=== PATIENT | male | born 1950 | race African-American/Black ===

== ENCOUNTER 2016-06-02 14:37 | Observation (INO) | payer OTHER, MEDICAID ==
[~2016-06-02] VITALS: Ht 175.3 cm; Wt 63.5 kg
[~2016-06-02 14:37] MED LIST: ACET-2178 PO; ACLI400A2 IH; ALBU2.5V13 NEB; FLUT1DIS IH; IPRA3AMP9 INH; LAMO25TA4 PO; LEVE1000 PO
[2016-06-02 15:51] LABS: HEMATOCRIT. 54.5 % (42.0-52.0); HEMOGLOBIN. 17.6 g/dL (14.0-18.0); MEAN CORPUSCULAR HEMOGLOBIN 28.2 pg (28.0-32.0); MEAN CORPUSCULAR HGB CONC 32.3 g/dL (31.0-37.0); MEAN CORPUSCULAR VOLUME 87.2 fL (80.0-94.0); PLATELET 199 x1000/uL (130-400); RED BLOOD CELL COUNT 6.24 mill/uL (4.7-6.1); RED CELL DISTRIBUTION WIDTH 14.2 % (11.6-14.6)
[2016-06-02 15:52] LABS: INR 1.2; PROTHROMBIN TIME 12.9 sec
[2016-06-02 15:58] LABS: DIFFERENTIAL COMMENT 1
[2016-06-02 15:59] LABS: ALANINE AMINOTRANSFERASE 127 IU/L (13-61); ALBUMIN 4.1 g/dL (3.4-5.0); ANION GAP 23; CALCIUM 9.5 mg/dL (8.5-10.1); CARBON DIOXIDE 20 mEq/L (21-32); CHLORIDE 101 mEq/L (98-107); INDEX HEMOLYSI 1 (1-3); INDEX ICTERIC 1 (1-4); INDEX LIPEMIC 1 (1-3); UREA NITROGEN BLOOD 15 mg/dL (7-21); eGFR > 60 mL/min (>60)
[2016-06-02 16:19] LABS: PLATELET ESTIMATE NORMAL
[2016-06-02] MEDS ORDERED: LEVETIRACETAM 500MG PREMIX 100 ML IV ONE (16:30)
[2016-06-02 16:42] LABS: INDEX HEMOLYSI 3 (1-3)
[2016-06-02 16:46] LABS: AMMONIA 253 uMol/L (<32)
[2016-06-02 17:36] LABS: *AMPHETAMINES SCREEN URINE NEGATIVE (NEGATIVE); *BARBITURATES SCREEN URINE NEGATIVE (NEGATIVE); *BENZODIAZEPINES SCREEN URINE NEGATIVE (NEGATIVE); *COCAINE SCREEN URINE NEGATIVE (NEGATIVE); CANNABINOID URINE SCREEN NEGATIVE (NEGATIVE); ECSTASY MDMA SCREEN URINE NEGATIVE (NEGATIVE); METHADONE URINE SCREEN NEGATIVE (NEGATIVE); OPIATES URINE SCREEN NEGATIVE (NEGATIVE); PHENCYCLIDINE URINE SCREEN NEGATIVE (NEGATIVE)
[2016-06-02] MEDS ORDERED: LACTULOSE 20G/30ML UDC PO ONE (18:00)
[2016-06-02 22:00] VITALS: BP_SYST 85; BP_SYST 87; BP_DIAS 67
[2016-06-03] VITALS: BP 94/71
[2016-06-03] MEDS ORDERED: ACETAMINOPHEN 325MG TABLET PO PRN (01:15)
[2016-06-03] MEDS: SODIUM CHLORIDE 0.45% 1,000 ML IV SCH ×3 (01:35→13:49)
[2016-06-03] MEDS: IPRATROPIUM/ALBUTEROL 0.5-3(2.5)MG/3ML NEB HHN SCH ×2 (01:47→04:37)
[2016-06-03 04:00] VITALS: BP 104/64
[2016-06-03] MEDS ORDERED: LACTULOSE 20G/30ML UDC PO SCH (06:00)
[2016-06-03 06:48] LABS: AMMONIA 21 uMol/L (<32); INDEX HEMOLYSI 2 (1-3)
[2016-06-03 07:09] LABS: ALANINE AMINOTRANSFERASE 110 IU/L (13-61); ALBUMIN 3.6 g/dL (3.4-5.0); ANION GAP 13; CALCIUM 8.5 mg/dL (8.5-10.1); CARBON DIOXIDE 27 mEq/L (21-32); CHLORIDE 104 mEq/L (98-107); INDEX HEMOLYSI 2 (1-3); INDEX ICTERIC 1 (1-4); INDEX LIPEMIC 1 (1-3); UREA NITROGEN BLOOD 20 mg/dL (7-21); eGFR > 60 mL/min (>60)
[2016-06-03 07:12] LABS: BASOPHILS % 0.7 % (0.0-2.0); EOSINOPHILS % 0.9 % (0.0-5.0); HEMATOCRIT. 49.7 % (42.0-52.0); HEMOGLOBIN. 16.8 g/dL (14.0-18.0); LYMPHOCYTES % 16.3 % (20.0-50.0); MEAN CORPUSCULAR HEMOGLOBIN 28.7 pg (28.0-32.0); MEAN CORPUSCULAR HGB CONC 33.7 g/dL (31.0-37.0); MEAN CORPUSCULAR VOLUME 84.9 fL (80.0-94.0); MEAN PLATELET VOLUME 7.9 fl (7.4-10.4); MONOCYTES % 10.8 % (2.0-8.0); NEUTROPHILS % 71.3 % (40.0-76.0); PLATELET 166 x1000/uL (130-400); RED BLOOD CELL COUNT 5.85 mill/uL (4.7-6.1); WHITE BLOOD COUNT 8.7 x1000/uL (4.5-11.0)
[2016-06-03 08:00] VITALS: BP 100/69
[2016-06-03] MEDS ORDERED: LAMOTRIGINE 25MG TABLET PO SCH (09:00)
[2016-06-03] MEDS ORDERED: LEVETIRACETAM 500MG TABLET PO SCH (09:00)
[2016-06-03 12:00] VITALS: BP 97/65
[2016-06-03 14:57] VITALS: BP 97/65
[2016-06-03 16:00] VITALS: BP 105/76
== END 2016-06-03 17:10 | disposition home or self-care (01) ==
LOC: ER 15:18 → INTOOBSV 19:18 → 7WST 19:18
PROVIDERS: ADMIT Internal Medicine; ATTEND Internal Medicine
DX: G40.909 Epilepsy, unspecified, not intractable, without status epilepticus (principal); J44.9 Chronic obstructive pulmonary disease, unspecified; F03.90 Unspecified dementia, unspecified severity, without behavioral disturbance, psychotic disturbance, mood disturbance, and anxiety; I50.9 Heart failure, unspecified; R41.0 Disorientation, unspecified
CPT/HCPCS: 36415; 70450; 80053; 80305; 82140; 82542; 85025; 85610; 96361; 96365; 99285; G0378; J1953; 96374; J7620

== ENCOUNTER 2016-07-11 11:21 | Observation (INO) | payer OTHER, MEDICAID ==
[~2016-07-11] VITALS: Ht 182.9 cm; Wt 69.9 kg
[2016-07-11 13:25] LABS: HEMATOCRIT. 50.6 % (42.0-52.0); HEMOGLOBIN. 16.9 g/dL (14.0-18.0); MEAN CORPUSCULAR HEMOGLOBIN 28.4 pg (28.0-32.0); MEAN CORPUSCULAR HGB CONC 33.4 g/dL (31.0-37.0); MEAN CORPUSCULAR VOLUME 85.2 fL (80.0-94.0); MEAN PLATELET VOLUME 7.9 fl (7.4-10.4); PLATELET 173 x1000/uL (130-400); RED BLOOD CELL COUNT 5.94 mill/uL (4.7-6.1)
[2016-07-11 13:30] LABS: DIFFERENTIAL COMMENT 1
[2016-07-11 13:31] LABS: AMMONIA 53 uMol/L (<32)
[2016-07-11 13:34] LABS: ALANINE AMINOTRANSFERASE 104 IU/L (13-61); ALBUMIN 3.8 g/dL (3.4-5.0); ANION GAP 14; CARBON DIOXIDE 29 mEq/L (21-32); CHLORIDE 101 mEq/L (98-107); ETHANOL BLOOD < 10 mg/dL; INDEX HEMOLYSI 1 (1-3); INDEX ICTERIC 1 (1-4); INDEX LIPEMIC 1 (1-3); TROPONIN I < 0.02 ng/mL (0.00-0.04); UREA NITROGEN BLOOD 15 mg/dL (7-21); eGFR > 60 mL/min (>60)
[2016-07-11 13:37] LABS: LACTIC ACID 5.3 mmol/L (0.4-2.0)
[2016-07-11 14:02] LABS: PLATELET ESTIMATE NORMAL
[2016-07-11 15:27] LABS: CLARITY URINE CLOUDY (CLEAR); COLOR URINE YELLOW (YELLOW); GLUCOSE URINE NEGATIVE (NEGATIVE); KETONES URINE NEGATIVE (NEGATIVE); LEUKOCYTE ESTERASE URINE 2+ (NEGATIVE); NITRITE URINE NEGATIVE (NEGATIVE); OCCULT BLOOD URINE NEGATIVE (NEGATIVE); PH URINE 5.5 (4.5-8.0); PROTEIN URINE TRACE (NEGATIVE); SPECIFIC GRAVITY URINE 1.013 (1.005-1.030); UROBILINOGEN URINE 0.2 E.U./dL (0.2-1.0)
[2016-07-11 15:42] LABS: *AMPHETAMINES SCREEN URINE NEGATIVE (NEGATIVE); *BARBITURATES SCREEN URINE NEGATIVE (NEGATIVE); *BENZODIAZEPINES SCREEN URINE NEGATIVE (NEGATIVE); *COCAINE SCREEN URINE NEGATIVE (NEGATIVE); CANNABINOID URINE SCREEN NEGATIVE (NEGATIVE); ECSTASY MDMA SCREEN URINE NEGATIVE (NEGATIVE); METHADONE URINE SCREEN NEGATIVE (NEGATIVE); OPIATES URINE SCREEN NEGATIVE (NEGATIVE); PHENCYCLIDINE URINE SCREEN NEGATIVE (NEGATIVE)
[2016-07-11 15:58] LABS: BACTERIA URINE 1+; RBC URINE NONE SEEN /hpf (0-2); SQUAMOUS EPITHELIAL CELL URINE NONE SEEN /lpf (RARE/1+); WBC URINE 15-25 /hpf (0-2)
[2016-07-11] MEDS ORDERED: CEFTRIAXONE 2 G PREMIX 50 ML IV ONE (16:30)
[2016-07-11] MEDS ORDERED: SODIUM CHLORIDE 0.9% 1000ML BAG (SEPSIS BOLUS) IV ONE (16:30)
[2016-07-11 21:00] VITALS: BP_SYST 103; BP_DIAS 72; BP_DIAS 82
[2016-07-11] MEDS ORDERED: IPRATROPIUM/ALBUTEROL 0.5-3(2.5)MG/3ML NEB HHN PRN (22:00)
[2016-07-11] MEDS ORDERED: ACETAMINOPHEN 325MG TABLET PO PRN (22:00)
[2016-07-11] MEDS: SODIUM CHLORIDE 0.45% 1,000 ML IV SCH (23:02)
[2016-07-11] MEDS: LAMOTRIGINE 100MG TABLET PO SCH (23:08)
[2016-07-11] MEDS: LEVETIRACETAM 500MG TABLET PO SCH (23:08)
[2016-07-12] VITALS: BP 107/68
[2016-07-12 04:00] VITALS: BP 98/69
[2016-07-12 08:00] VITALS: BP 109/66
[2016-07-12] MEDS: LAMOTRIGINE 100MG TABLET PO SCH (08:41)
[2016-07-12] MEDS: SODIUM CHLORIDE 0.45% 1,000 ML IV SCH (08:41)
[2016-07-12] MEDS: LEVETIRACETAM 500MG TABLET PO SCH (08:41)
[2016-07-12 12:00] VITALS: BP 88/56
[2016-07-12 16:13] VITALS: BP 88/56
== END 2016-07-12 16:45 ==
LOC: ER 11:21 → 6WST 20:11 → INTOOBSV 20:11
PROVIDERS: ADMIT Internal Medicine; ATTEND Internal Medicine
DX: G40.909 Epilepsy, unspecified, not intractable, without status epilepticus (principal); K21.9 Gastro-esophageal reflux disease without esophagitis; J44.9 Chronic obstructive pulmonary disease, unspecified; Z87.891 Personal history of nicotine dependence
CPT/HCPCS: 36415; 51702; 70450; 71010; 80053; 80305; 81001; 82140; 82542; 83605; 84484; 85025; 87040; 93005; 96361; 96365; 99291; G0378; G0482; J0696

== ENCOUNTER 2016-08-07 14:34 | Observation (INO) | payer OTHER, MEDICAID ==
[~2016-08-07] VITALS: Ht 175.3 cm; Wt 69.4 kg
[2016-08-07] MEDS ORDERED: SODIUM CHLORIDE 0.9% 1,000 ML IV ONE (15:16)
[2016-08-07] MEDS ORDERED: TETANUS, DIPHTHERIA, PERTUSSIS VAC/PF 0.5ML (>7YR OLD) IM ONE (15:30)
[2016-08-07] MEDS ORDERED: LIDOCAINE HCL 1% 20ML VIAL (Pyxis) INJ MC ONE (15:30)
[2016-08-07] MEDS ORDERED: LEVETIRACETAM 500MG PREMIX 100 ML IV ONE (15:30)
[2016-08-07] MEDS ORDERED: BACITRACIN ZINC OINT UDPKT TOP ONE (15:30)
[2016-08-07 16:42] LABS: BASOPHILS % 0.7 % (0.0-2.0); EOSINOPHILS % 0.7 % (0.0-5.0); HEMATOCRIT. 54.9 % (42.0-52.0); HEMOGLOBIN. 18.3 g/dL (14.0-18.0); LYMPHOCYTES % 10.9 % (20.0-50.0); MEAN CORPUSCULAR HEMOGLOBIN 28.3 pg (28.0-32.0); MEAN CORPUSCULAR VOLUME 84.8 fL (80.0-94.0); MEAN PLATELET VOLUME 7.9 fl (7.4-10.4); MONOCYTES % 5.7 % (2.0-8.0); PLATELET 207 x1000/uL (130-400); RED BLOOD CELL COUNT 6.48 mill/uL (4.7-6.1); RED CELL DISTRIBUTION WIDTH 14.2 % (11.6-14.6)
[2016-08-07 16:56] LABS: CARBON DIOXIDE 26 mEq/L (21-32); CHLORIDE 102 mEq/L (98-107); ETHANOL BLOOD < 10 mg/dL; TROPONIN I < 0.02 ng/mL (0.00-0.04)
[2016-08-07 16:59] LABS: AMMONIA 150 uMol/L (<32)
[2016-08-07] MEDS ORDERED: LACTULOSE 20G/30ML UDC PO ONE (17:30)
[2016-08-07 19:15] LABS: INR 1.2; PARTIAL THROMBOPLASTIN TIME 20.5 sec (24.0-34.0); PROTHROMBIN TIME 12.4 sec
[2016-08-07 19:22] LABS: CARBAMAZEPINE < 0.5 ug/mL (4-12); PHENOBARBITAL < 2.1 ug/mL (15.0-40.0); PHENYTOIN < 0.4 ug/mL (10-20); VALPROIC ACID < 3.0 ug/mL (50-100)
[2016-08-07 21:10] VITALS: BP 94/74
[2016-08-07 21:20] VITALS: BP 99/74
[2016-08-07] MEDS ORDERED: DEXTROSE 5% WATER 1,000 ML IV SCH (23:45)
[2016-08-08] VITALS (10 sets, daily range): BP systolic 84–138; BP diastolic 49–98
[2016-08-08] MEDS ORDERED: IPRATROPIUM/ALBUTEROL 0.5-3(2.5)MG/3ML NEB HHN PRN
[2016-08-08] MEDS: DEXT 5%/0.45% NACL 1000ML 1,000 ML IV SCH ×2 (00:50→09:35)
[2016-08-08] MEDS ORDERED: ALBUTEROL (0.083%) 2.5MG/3ML NEB HHN SCH (06:00)
[2016-08-08] MEDS ORDERED: IPRATROPIUM BROMIDE (0.02%) 0.5MG/2.5ML NEB HHN SCH (06:00)
[2016-08-08] MEDS: LACTULOSE 20G/30ML UDC PO SCH ×2 (06:00→13:58)
[2016-08-08 08:42] LABS: BASOPHILS % 0.6 % (0.0-2.0); EOSINOPHILS % 1.7 % (0.0-5.0); HEMOGLOBIN. 14.8 g/dL (14.0-18.0); MEAN CORPUSCULAR HEMOGLOBIN 28.2 pg (28.0-32.0); MEAN CORPUSCULAR VOLUME 83.8 fL (80.0-94.0); MEAN PLATELET VOLUME 8.1 fl (7.4-10.4); MONOCYTES % 9.8 % (2.0-8.0); NEUTROPHILS % 66.9 % (40.0-76.0); PLATELET 160 x1000/uL (130-400); RED BLOOD CELL COUNT 5.25 mill/uL (4.7-6.1); RED CELL DISTRIBUTION WIDTH 14.3 % (11.6-14.6)
[2016-08-08] MEDS: BUDESONIDE 0.5MG/2ML NEB HHN SCH ×2 (08:53→20:00)
[2016-08-08] MEDS: IPRATROPIUM/ALBUTEROL 0.5-3(2.5)MG/3ML NEB HHN SCH ×2 (08:53→20:00)
[2016-08-08 08:58] LABS: AMMONIA 26 uMol/L (<32)
[2016-08-08] MEDS ORDERED: ENOXAPARIN 40MG/0.4ML SYR SUBCUT SCH (09:00)
[2016-08-08] MEDS ORDERED: LAMOTRIGINE 25MG TABLET PO SCH ×2 (09:00→17:00)
[2016-08-08] MEDS ORDERED: LEVETIRACETAM 500MG TABLET PO SCH ×2 (09:00→17:00)
[2016-08-08 09:03] LABS: CARBON DIOXIDE 28 mEq/L (21-32); CHLORIDE 109 mEq/L (98-107)
[2016-08-08] MEDS: FAMOTIDINE 20MG TABLET PO SCH ×2 (09:34→20:31)
[2016-08-08] MEDS ORDERED: MIDODRINE HCL 2.5MG TABLET PO SCH (15:00)
[2016-08-08 15:34] LABS: CLARITY URINE CLEAR (CLEAR); COLOR URINE YELLOW (YELLOW); GLUCOSE URINE NEGATIVE (NEGATIVE); KETONES URINE NEGATIVE (NEGATIVE); LEUKOCYTE ESTERASE URINE NEGATIVE (NEGATIVE); NITRITE URINE NEGATIVE (NEGATIVE); OCCULT BLOOD URINE NEGATIVE (NEGATIVE); PROTEIN URINE NEGATIVE (NEGATIVE); SPECIFIC GRAVITY URINE 1.013 (1.005-1.030); UROBILINOGEN URINE 0.2 E.U./dL (0.2-1.0)
[2016-08-08 15:55] LABS: *AMPHETAMINES SCREEN URINE NEGATIVE (NEGATIVE); *BARBITURATES SCREEN URINE NEGATIVE (NEGATIVE); *BENZODIAZEPINES SCREEN URINE NEGATIVE (NEGATIVE); *COCAINE SCREEN URINE NEGATIVE (NEGATIVE); CANNABINOID URINE SCREEN NEGATIVE (NEGATIVE); METHADONE URINE SCREEN NEGATIVE (NEGATIVE); OPIATES URINE SCREEN NEGATIVE (NEGATIVE); PHENCYCLIDINE URINE SCREEN NEGATIVE (NEGATIVE)
== END 2016-08-08 23:38 ==
LOC: ER 14:43 → 8WST 18:28 → INTOOBSV 18:28 → EDBEDREQ 18:32 → EDBEDREQTM 18:32 → ENRESERV 18:42
PROVIDERS: ADMIT Ophthalmology; ATTEND Ophthalmology
DX: G40.909 Epilepsy, unspecified, not intractable, without status epilepticus (principal); S01.91XA Laceration without foreign body of unspecified part of head, initial encounter; K21.9 Gastro-esophageal reflux disease without esophagitis; J44.9 Chronic obstructive pulmonary disease, unspecified; M47.812 Spondylosis without myelopathy or radiculopathy, cervical region; K72.00 Acute and subacute hepatic failure without coma; I10 Essential (primary) hypertension; F03.90 Unspecified dementia, unspecified severity, without behavioral disturbance, psychotic disturbance, mood disturbance, and anxiety; R40.2430 Glasgow coma scale score 3-8, unspecified time; R79.89 Other specified abnormal findings of blood chemistry; Z79.899 Other long term (current) drug therapy; Z23 Encounter for immunization; X58.XXXA Exposure to other specified factors, initial encounter; Y93.89 Activity, other specified; Y92.89 Other specified places as the place of occurrence of the external cause; Y99.8 Other external cause status
CPT/HCPCS: 12011; 36415; 70450; 71010; 72125; 80053; 80156; 80165; 80184; 80185; 80305; 81003; 82140; 82962; 84484; 85025; 85610; 85730; 86850; 86900; 86901; 90471; 90715; 93005; 96361; 96365; 96372; 99285; G0378; G0482; J1650; J1953; J7050; 12001; 96374; J3490; J7030; J7620; J7626

== ENCOUNTER 2016-12-04 02:52 | Observation (INO) | payer OTHER, MEDICAID ==
[~2016-12-04] VITALS: Ht 182.9 cm; Wt 65.3 kg
[~2016-12-04 02:52] MED LIST changes: -ACET-2178 PO; -ACLI400A2 IH; -ALBU2.5V13 NEB; +DUONEB3 ML INH; -FLUT1DIS IH; -IPRA3AMP9 INH; -LEVE1000 PO; +LEVE10006 PO
[2016-12-04] MEDS ORDERED: SODIUM CHLORIDE 0.9% 1,000 ML IV ONE ×2 (03:13)
[2016-12-04] MEDS ORDERED: FAMOTIDINE 20MG/2ML VIAL IV STA (03:13)
[2016-12-04] MEDS ORDERED: TETANUS, DIPHTHERIA, PERTUSSIS VAC/PF 0.5ML (>7YR OLD) IM ONE (03:15)
[2016-12-04 03:56] LABS: BASOPHILS % 0.4 % (0.0-2.0); EOSINOPHILS % 0.4 % (0.0-5.0); HEMATOCRIT. 53.2 % (42.0-52.0); HEMOGLOBIN. 17.5 g/dL (14.0-18.0); LYMPHOCYTES % 7.5 % (20.0-50.0); MEAN CORPUSCULAR HEMOGLOBIN 28.2 pg (28.0-32.0); MEAN CORPUSCULAR VOLUME 85.5 fL (80.0-94.0); MEAN PLATELET VOLUME 7.9 fl (7.4-10.4); MONOCYTES % 5.8 % (2.0-8.0); NEUTROPHILS % 85.9 % (40.0-76.0); PLATELET 181 x1000/uL (130-400); RED BLOOD CELL COUNT 6.22 mill/uL (4.7-6.1); RED CELL DISTRIBUTION WIDTH 14.6 % (11.6-14.6)
[2016-12-04 03:59] LABS: INR 1.2; PROTHROMBIN TIME 12.8 sec (9.4-11.6)
[2016-12-04 04:15] LABS: AMMONIA 62 uMol/L (<32)
[2016-12-04 04:16] LABS: CARBON DIOXIDE 22 mEq/L (21-32); CHLORIDE 103 mEq/L (98-107); CREATINE KINASE 515 IU/L (39-308); ETHANOL BLOOD < 10 mg/dL; TROPONIN I 0.15 ng/mL (0.00-0.04)
[2016-12-04] MEDS ORDERED: SODIUM CHLORIDE 0.9% 1000ML BAG (SEPSIS BOLUS) IV NR (05:30)
[2016-12-04] MEDS ORDERED: ASPIRIN 325MG TABLET PO NR (05:30)
[2016-12-04] MEDS ORDERED: LACTULOSE 20G/30ML UDC PO NR (05:30)
[2016-12-04] MEDS ORDERED: LEVOFLOXACIN 750MG PREMIX 150 ML IV NR (05:30)
[2016-12-04 05:35] LABS: CLARITY URINE CLEAR (CLEAR); COLOR URINE YELLOW (YELLOW); GLUCOSE URINE NEGATIVE (NEGATIVE); KETONES URINE NEGATIVE (NEGATIVE); LEUKOCYTE ESTERASE URINE NEGATIVE (NEGATIVE); NITRITE URINE NEGATIVE (NEGATIVE); OCCULT BLOOD URINE 1+ (NEGATIVE); PH URINE 5.5 (4.5-8.0); PROTEIN URINE 1+ (NEGATIVE); SPECIFIC GRAVITY URINE 1.015 (1.005-1.030); UROBILINOGEN URINE 0.2 E.U./dL (0.2-1.0)
[2016-12-04] MEDS ORDERED: ACETAMINOPHEN 325MG TABLET PO PRN (05:45)
[2016-12-04] MEDS ORDERED: IPRATROPIUM/ALBUTEROL 0.5-3(2.5)MG/3ML NEB HHN PRN (05:45)
[2016-12-04 06:17] LABS: *AMPHETAMINES SCREEN URINE NEGATIVE (NEGATIVE); *BARBITURATES SCREEN URINE NEGATIVE (NEGATIVE); *BENZODIAZEPINES SCREEN URINE NEGATIVE (NEGATIVE); *COCAINE SCREEN URINE NEGATIVE (NEGATIVE); CANNABINOID URINE SCREEN NEGATIVE (NEGATIVE); METHADONE URINE SCREEN NEGATIVE (NEGATIVE); OPIATES URINE SCREEN NEGATIVE (NEGATIVE); PHENCYCLIDINE URINE SCREEN NEGATIVE (NEGATIVE)
[2016-12-04 08:10] VITALS: BP 112/67
[2016-12-04] MEDS ORDERED: LAMOTRIGINE 25MG TABLET PO SCH (09:00)
[2016-12-04] MEDS ORDERED: VANCOMYCIN 1,250 MG in DEXT 5% WATER 250 ML IV SCH (10:00)
[2016-12-04] MEDS: LEVETIRACETAM 500MG TABLET PO SCH ×2 (10:26→21:19)
[2016-12-04] MEDS: PIPERACILLIN/TAZ 3.375G PREMIX 50 ML IV SCH ×3 (10:26→21:19)
[2016-12-04 12:00] VITALS: BP 113/70
[2016-12-04] MEDS: DEXT 5%/0.45% NACL 1000ML 1,000 ML IV SCH (15:17)
[2016-12-04] MEDS: ENOXAPARIN 40MG/0.4ML SYR SUBCUT SCH (15:17)
[2016-12-04 15:27] LABS: CHLORIDE 110 mEq/L (98-107)
[2016-12-04 15:28] LABS: AMMONIA 38 uMol/L (<32)
[2016-12-04 15:33] LABS: CARBON DIOXIDE 21 mEq/L (21-32)
[2016-12-04 16:00] VITALS: BP 103/68
[2016-12-04] MEDS: IPRATROPIUM/ALBUTEROL 0.5-3(2.5)MG/3ML NEB HHN SCH ×2 (16:00→20:00)
[2016-12-04 16:20] LABS: BASOPHILS % 0.5 % (0.0-2.0); EOSINOPHILS % 0.3 % (0.0-5.0); HEMOGLOBIN. 14.8 g/dL (14.0-18.0); LYMPHOCYTES % 12.8 % (20.0-50.0); MEAN CORPUSCULAR VOLUME 84.9 fL (80.0-94.0); MEAN PLATELET VOLUME 8.2 fl (7.4-10.4); MONOCYTES % 7.4 % (2.0-8.0); PLATELET 157 x1000/uL (130-400); RED CELL DISTRIBUTION WIDTH 14.8 % (11.6-14.6)
[2016-12-04 20:06] VITALS: BP 100/66
[2016-12-04] MEDS: VANCOMYCIN 750 MG PREMIX 150 ML IV SCH (22:49)
[2016-12-05] VITALS: BP 100/60
[2016-12-05] MEDS: PIPERACILLIN/TAZ 3.375G PREMIX 50 ML IV SCH ×3 (02:48→16:18)
[2016-12-05] MEDS: DEXT 5%/0.45% NACL 1000ML 1,000 ML IV SCH ×3 (02:48→20:54)
[2016-12-05 04:00] VITALS: BP 108/78
[2016-12-05] MEDS: IPRATROPIUM/ALBUTEROL 0.5-3(2.5)MG/3ML NEB HHN SCH ×6 (04:00→20:40)
[2016-12-05 08:00] VITALS: BP 110/78
[2016-12-05] MEDS: PANTOPRAZOLE 40MG DR TABLET PO SCH (08:11)
[2016-12-05] MEDS: LEVETIRACETAM 500MG TABLET PO SCH ×2 (08:11→20:56)
[2016-12-05] MEDS: ENOXAPARIN 40MG/0.4ML SYR SUBCUT SCH (08:11)
[2016-12-05] MEDS: LAMOTRIGINE 25MG TABLET PO SCH (08:13)
[2016-12-05] MEDS: VANCOMYCIN 750 MG PREMIX 150 ML IV SCH (10:38)
[2016-12-05 12:00] VITALS: BP 102/72
[2016-12-05 16:00] VITALS: BP 113/76
[2016-12-05 20:00] VITALS: BP 110/72
[2016-12-06] VITALS: BP 106/65
[2016-12-06] MEDS: VANCOMYCIN 750 MG PREMIX 150 ML IV SCH (00:12)
[2016-12-06] MEDS: PIPERACILLIN/TAZ 3.375G PREMIX 50 ML IV SCH ×3 (00:12→12:13)
[2016-12-06 04:00] VITALS: BP 113/80
[2016-12-06 08:00] VITALS: BP 101/68
[2016-12-06 08:10] LABS: CARBON DIOXIDE 30 mEq/L (21-32); CHLORIDE 103 mEq/L (98-107)
[2016-12-06] MEDS: ENOXAPARIN 40MG/0.4ML SYR SUBCUT SCH (09:30)
[2016-12-06] MEDS: PANTOPRAZOLE 40MG DR TABLET PO SCH (09:31)
[2016-12-06] MEDS: LAMOTRIGINE 25MG TABLET PO SCH (09:31)
[2016-12-06] MEDS: LEVETIRACETAM 500MG TABLET PO SCH (09:31)
[2016-12-06] MEDS: IPRATROPIUM/ALBUTEROL 0.5-3(2.5)MG/3ML NEB HHN SCH (10:00)
[2016-12-06 12:00] VITALS: BP 119/74
[2016-12-06] MEDS: DEXT 5%/0.45% NACL 1000ML 1,000 ML IV SCH (12:19)
[2016-12-06 16:00] VITALS: BP 113/83
[2016-12-06 18:00] VITALS: BP 119/80
== END 2016-12-06 18:30 ==
LOC: ER 02:52 → INTOOBSV 04:37 → 8WST 04:37 → ENRESERV 06:45
PROVIDERS: ADMIT Internal Medicine; ATTEND Internal Medicine
DX: R55 Syncope and collapse (principal); J44.9 Chronic obstructive pulmonary disease, unspecified; G40.909 Epilepsy, unspecified, not intractable, without status epilepticus; K76.9 Liver disease, unspecified; K21.9 Gastro-esophageal reflux disease without esophagitis; S00.81XA Abrasion of other part of head, initial encounter; R10.9 Unspecified abdominal pain; E87.2 Acidosis; E72.20 Disorder of urea cycle metabolism, unspecified; R78.89 Finding of other specified substances, not normally found in blood; Z87.891 Personal history of nicotine dependence; Z23 Encounter for immunization; W19.XXXA Unspecified fall, initial encounter; Y93.89 Activity, other specified; Y92.129 Unspecified place in nursing home as the place of occurrence of the external cause; Y99.8 Other external cause status
CPT/HCPCS: 36415; 70450; 71010; 72125; 74176; 80048; 80053; 80202; 80305; 80307; 80329; 81001; 82140; 82270; 82542; 82550; 83605; 83690; 83880; 84443; 84484; 85025; 85610; 87015; 87040; 87045; 87086; 87427; 87449; 89055; 90471; 90715; 93005; 95819; 96361; 96365; 96366; 96367; 96368; 96372; 96375; 97162; 97165; 99291; G0378; G0482; J1650; J1956; J2543; J3370; J3490; J7030; J7060; J7620

== ENCOUNTER 2016-12-09 19:57 | Emergency (ER) | payer OTHER, MEDICAID ==
[~2016-12-09] VITALS: Ht 182.9 cm; Wt 82.0 kg
[2016-12-09] MEDS ORDERED: TETANUS, DIPHTHERIA, PERTUSSIS VAC/PF 0.5ML (>7YR OLD) IM ONE (21:30)
[2016-12-09] MEDS ORDERED: ONDANSETRON HCL 4MG/2ML VIAL IV ONE (21:30)
[2016-12-09] MEDS ORDERED: LIDOCAINE HCL 1%/EPI 1:200,000 30 ML VIAL MC ONE (21:30)
[2016-12-09] MEDS ORDERED: BACITRACIN ZINC OINT UDPKT TOP ONE (21:30)
[2016-12-09] MEDS ORDERED: MORPHINE SULFATE 4 MG/ML CPJ (NOT FOR IM USE) IV ONE (21:30)
[2016-12-09 21:54] LABS: BASOPHILS % 0.3 % (0.0-2.0); EOSINOPHILS % 0.8 % (0.0-5.0); HEMATOCRIT. 47.7 % (42.0-52.0); HEMOGLOBIN. 16.1 g/dL (14.0-18.0); LYMPHOCYTES % 12.6 % (20.0-50.0); MEAN CORPUSCULAR HEMOGLOBIN 28.5 pg (28.0-32.0); MEAN CORPUSCULAR VOLUME 84.4 fL (80.0-94.0); MEAN PLATELET VOLUME 7.7 fl (7.4-10.4); MONOCYTES % 11.3 % (2.0-8.0); PLATELET 186 x1000/uL (130-400); RED BLOOD CELL COUNT 5.65 mill/uL (4.7-6.1); RED CELL DISTRIBUTION WIDTH 14.4 % (11.6-14.6)
[2016-12-09 22:01] LABS: CARBON DIOXIDE 29 mEq/L (21-32); CHLORIDE 100 mEq/L (98-107); INR 1.2; PROTHROMBIN TIME 12.3 sec (9.4-11.6)
[2016-12-09 22:03] LABS: AMMONIA 22 uMol/L (<32)
[2016-12-09 22:09] LABS: TROPONIN I < 0.02 ng/mL (0.00-0.04)
[2016-12-09] MEDS ORDERED: MORPHINE SULFATE 2 MG/ML CPJ (NOT FOR IM USE) IV ONE (22:28)
[2016-12-10 00:08] LABS: CLARITY URINE CLEAR (CLEAR); COLOR URINE YELLOW (YELLOW); GLUCOSE URINE NEGATIVE (NEGATIVE); KETONES URINE TRACE (NEGATIVE); LEUKOCYTE ESTERASE URINE NEGATIVE (NEGATIVE); NITRITE URINE NEGATIVE (NEGATIVE); OCCULT BLOOD URINE 1+ (NEGATIVE); PH URINE 6.5 (4.5-8.0); PROTEIN URINE NEGATIVE (NEGATIVE); SPECIFIC GRAVITY URINE 1.015 (1.005-1.030); UROBILINOGEN URINE 0.2 E.U./dL (0.2-1.0)
[2016-12-10 04:37] VITALS: BP 136/85
== END 2016-12-10 05:04 | disposition home or self-care (01) ==
LOC: ER 20:24 → EDBEDREQ 12-10 01:05 → ER 12-10 05:04 → CANBEDREQ 12-10 05:28
DX: S01.511A Laceration without foreign body of lip, initial encounter (principal); R56.9 Unspecified convulsions; W45.8XXA Other foreign body or object entering through skin, initial encounter; Y93.89 Activity, other specified; Y92.89 Other specified places as the place of occurrence of the external cause; Y99.8 Other external cause status
CPT/HCPCS: 12011; 36415; 70450; 70486; 71010; 72125; 80053; 81001; 82140; 83880; 84484; 85025; 85610; 90471; 90715; 93005; 96374; 96375; 99285; C1893; J2270; J2405; J7030; 81003

== ENCOUNTER 2016-12-10 18:58 | Emergency (ER) | payer OTHER, MEDICAID ==
[~2016-12-10] VITALS: Ht 167.6 cm; Wt 50.0 kg
[2016-12-10] MEDS ORDERED: LEVETIRACETAM 500MG PREMIX 100 ML IV ONE (19:45)
[2016-12-10] MEDS ORDERED: METHYLPREDNISOLONE SOD SUCC 125 MG/2 ML VIAL IV STA (19:45)
[2016-12-10] MEDS ORDERED: ALBUTEROL (0.083%) 2.5MG/3ML NEB HHN STA (19:45)
[2016-12-10] MEDS ORDERED: IPRATROPIUM BROMIDE (0.02%) 0.5MG/2.5ML NEB HHN STA (19:45)
[2016-12-10 20:24] LABS: BASOPHILS % 0.3 % (0.0-2.0); EOSINOPHILS % 0.3 % (0.0-5.0); HEMOGLOBIN. 16.7 g/dL (14.0-18.0); LYMPHOCYTES % 14.7 % (20.0-50.0); MEAN CORPUSCULAR VOLUME 85.1 fL (80.0-94.0); MEAN PLATELET VOLUME 7.9 fl (7.4-10.4); MONOCYTES % 9.9 % (2.0-8.0); NEUTROPHILS % 74.8 % (40.0-76.0); PLATELET 199 x1000/uL (130-400); RED BLOOD CELL COUNT 5.76 mill/uL (4.7-6.1); RED CELL DISTRIBUTION WIDTH 14.6 % (11.6-14.6)
[2016-12-10 20:39] LABS: CARBON DIOXIDE 27 mEq/L (21-32); CHLORIDE 100 mEq/L (98-107)
[2016-12-10 22:13] LABS: AMMONIA 26 uMol/L (<32)
[2016-12-11 03:20] VITALS: BP 116/71
== END 2016-12-11 03:30 ==
LOC: ER 18:58
DX: G40.909 Epilepsy, unspecified, not intractable, without status epilepticus (principal); R53.1 Weakness; J44.9 Chronic obstructive pulmonary disease, unspecified; I45.10 Unspecified right bundle-branch block
CPT/HCPCS: 36415; 71010; 80053; 82140; 85025; 93005; 94640; 96365; 96375; 99285; J1953; J2930; J7611

== ENCOUNTER 2016-12-11 22:12 | Emergency (ER) | payer OTHER, MEDICAID ==
[~2016-12-11] VITALS: Ht 172.7 cm; Wt 63.0 kg
[2016-12-11] MEDS ORDERED: SODIUM CHLORIDE 0.9% 1,000 ML IV ONE (22:37)
[2016-12-11 22:58] LABS: BASOPHILS % 0.4 % (0.0-2.0); BG BASE EXCESS 3.7 mmol/L (-2.0-2.0); BG CARBOXYHEMOGLOBIN 0.8 % (0.5-1.5); BG DEOXYHEMOGLOBIN 3.6 % (0.0-5.0); BG FRACTION INSPIRED OXYGEN 28; BG HCO3 ACT 28.3 mmol/L (22.0-26.0); BG METHEMOGLOBIN 0.3 % (0.0-1.5); BG OXYGEN SATURATION 96.4 % (92.0-98.5); BG OXYHEMOGLOBIN 95.3 % (94.0-97.0); BG PCO2 42.5 mmHg (35.0-45.0); BG PH 7.442 (7.350-7.450); BG PO2 82.6 mmHg (75.0-100.0); BG SAMPLE SITE LEFT RADIAL; BG TOTAL HEMOGLOBIN 16.5 g/dL (12.0-18.0); BG VENT MODE NASAL CANNULA; HEMATOCRIT. 47.6 % (42.0-52.0); HEMOGLOBIN. 15.9 g/dL (14.0-18.0); LYMPHOCYTES % 9.6 % (20.0-50.0); MEAN CORPUSCULAR HEMOGLOBIN 28.2 pg (28.0-32.0); MEAN CORPUSCULAR VOLUME 84.2 fL (80.0-94.0); MEAN PLATELET VOLUME 7.7 fl (7.4-10.4); PLATELET 205 x1000/uL (130-400); RED BLOOD CELL COUNT 5.65 mill/uL (4.7-6.1); RED CELL DISTRIBUTION WIDTH 14.2 % (11.6-14.6)
[2016-12-11 23:17] LABS: AMMONIA 21 uMol/L (<32)
[2016-12-11 23:23] LABS: CARBON DIOXIDE 29 mEq/L (21-32); CHLORIDE 100 mEq/L (98-107); ETHANOL BLOOD < 10 mg/dL; TROPONIN I < 0.02 ng/mL (0.00-0.04)
[2016-12-11 23:39] LABS: CLARITY URINE CLEAR (CLEAR); COLOR URINE YELLOW (YELLOW); GLUCOSE URINE NEGATIVE (NEGATIVE); KETONES URINE NEGATIVE (NEGATIVE); LEUKOCYTE ESTERASE URINE NEGATIVE (NEGATIVE); NITRITE URINE NEGATIVE (NEGATIVE); OCCULT BLOOD URINE 1+ (NEGATIVE); PH URINE 5.5 (4.5-8.0); PROTEIN URINE NEGATIVE (NEGATIVE); SPECIFIC GRAVITY URINE 1.017 (1.005-1.030); UROBILINOGEN URINE 0.2 E.U./dL (0.2-1.0)
[2016-12-12 00:15] LABS: *AMPHETAMINES SCREEN URINE NEGATIVE (NEGATIVE); *BARBITURATES SCREEN URINE NEGATIVE (NEGATIVE); *BENZODIAZEPINES SCREEN URINE NEGATIVE (NEGATIVE); *COCAINE SCREEN URINE NEGATIVE (NEGATIVE); CANNABINOID URINE SCREEN NEGATIVE (NEGATIVE); METHADONE URINE SCREEN NEGATIVE (NEGATIVE); OPIATES URINE SCREEN NEGATIVE (NEGATIVE); PHENCYCLIDINE URINE SCREEN NEGATIVE (NEGATIVE)
[2016-12-12 09:53] VITALS: BP 108/67
== END 2016-12-12 10:47 | disposition home or self-care (01) ==
LOC: ER 22:12
DX: F03.90 Unspecified dementia, unspecified severity, without behavioral disturbance, psychotic disturbance, mood disturbance, and anxiety (principal); G93.49 Other encephalopathy; G40.909 Epilepsy, unspecified, not intractable, without status epilepticus; K21.9 Gastro-esophageal reflux disease without esophagitis; J44.9 Chronic obstructive pulmonary disease, unspecified
CPT/HCPCS: 36415; 36600; 71010; 80053; 80305; 81001; 82140; 82375; 82805; 83605; 84484; 85025; 93005; 96360; 96361; 99285; G0482; J7030; A4315

== ENCOUNTER 2016-12-25 19:27 | Emergency (ER) | payer OTHER, MEDICAID ==
[~2016-12-25] VITALS: Ht 167.6 cm; Wt 63.0 kg
[2016-12-25 20:25] LABS: HEMATOCRIT. 49.3 % (42.0-52.0); HEMOGLOBIN. 16.1 g/dL (14.0-18.0); MEAN CORPUSCULAR VOLUME 85.6 fL (80.0-94.0); MEAN PLATELET VOLUME 9.1 fl (7.4-10.4); PLATELET 227 x1000/uL (130-400); RED BLOOD CELL COUNT 5.76 mill/uL (4.7-6.1); RED CELL DISTRIBUTION WIDTH 14.6 % (11.6-14.6)
[2016-12-25 20:31] LABS: CHLORIDE 101 mEq/L (98-107)
[2016-12-25 20:40] LABS: CARBON DIOXIDE 28 mEq/L (21-32); ETHANOL BLOOD < 10 mg/dL
[2016-12-25] MEDS ORDERED: SODIUM CHLORIDE 0.9% 1,000 ML IV ONE (20:47)
[2016-12-25] MEDS ORDERED: LEVETIRACETAM 500MG PREMIX 100 ML IV ONE (21:00)
[2016-12-25] MEDS ORDERED: LEVETIRACETAM 500MG PREMIX 100 ML IV NR (21:30)
[2016-12-25 21:38] LABS: PLATELET ESTIMATE NORMAL
[2016-12-26 01:37] VITALS: BP 109/72
== END 2016-12-26 01:51 ==
LOC: ER 19:33
DX: R41.82 Altered mental status, unspecified (principal); G40.909 Epilepsy, unspecified, not intractable, without status epilepticus; E11.9 Type 2 diabetes mellitus without complications; I51.9 Heart disease, unspecified; Z85.46 Personal history of malignant neoplasm of prostate; I25.10 Atherosclerotic heart disease of native coronary artery without angina pectoris
CPT/HCPCS: 36415; 70450; 71010; 80053; 85025; 93005; 96361; 96365; 99285; G0482; J1953; J7030; A4315

== ENCOUNTER 2017-02-11 11:57 | Emergency (ER) | payer OTHER, MEDICAID ==
[~2017-02-11] VITALS: Ht 175.3 cm; Wt 65.0 kg
[2017-02-11] MEDS ORDERED: ONDANSETRON HCL 4MG/2ML VIAL IV STA (12:28)
[2017-02-11] MEDS ORDERED: SODIUM CHLORIDE 0.9% 1,000 ML IV ONE (12:28)
[2017-02-11] MEDS ORDERED: LEVETIRACETAM 500MG PREMIX 100 ML IV ONE (12:30)
[2017-02-11 12:54] LABS: HEMATOCRIT. 52.5 % (42.0-52.0); HEMOGLOBIN. 17.4 g/dL (14.0-18.0); MEAN CORPUSCULAR HEMOGLOBIN 28.7 pg (28.0-32.0); MEAN CORPUSCULAR VOLUME 86.5 fL (80.0-94.0); MEAN PLATELET VOLUME 7.5 fl (7.4-10.4); PLATELET 204 x1000/uL (130-400); RED BLOOD CELL COUNT 6.07 mill/uL (4.7-6.1); RED CELL DISTRIBUTION WIDTH 14.7 % (11.6-14.6)
[2017-02-11 13:01] LABS: INR 1.2; PROTHROMBIN TIME 12.2 sec (9.4-11.6)
[2017-02-11 13:20] LABS: CARBON DIOXIDE 27 mEq/L (21-32); CHLORIDE 101 mEq/L (98-107); CREATINE KINASE 84 IU/L (39-308); ETHANOL BLOOD < 10 mg/dL; TROPONIN I < 0.02 ng/mL (0.00-0.04)
[2017-02-11 13:22] LABS: PLATELET ESTIMATE NORMAL
[2017-02-11 13:28] LABS: CARBAMAZEPINE < 0.5 ug/mL (4-12); PHENOBARBITAL < 2.1 ug/mL (15.0-40.0); VALPROIC ACID < 3.0 ug/mL (50-100)
[2017-02-11 19:38] VITALS: BP 108/78
== END 2017-02-11 19:41 ==
LOC: ER 12:18
DX: S09.90XA Unspecified injury of head, initial encounter (principal); G40.909 Epilepsy, unspecified, not intractable, without status epilepticus; E86.0 Dehydration; M54.2 Cervicalgia; K21.9 Gastro-esophageal reflux disease without esophagitis; F20.9 Schizophrenia, unspecified; E11.9 Type 2 diabetes mellitus without complications; X58.XXXA Exposure to other specified factors, initial encounter; Y93.89 Activity, other specified; Y92.89 Other specified places as the place of occurrence of the external cause; Y99.8 Other external cause status
CPT/HCPCS: 36415; 70450; 71010; 72125; 80053; 80156; 80165; 80184; 80185; 82550; 83880; 84443; 84484; 85025; 85610; 93005; 96365; 96375; 99285; G0482; J1953; J2405; J7030

== ENCOUNTER 2017-04-17 13:04 | Emergency (ER) | payer OTHER, MEDICAID ==
[~2017-04-17] VITALS: Ht 170.2 cm; Wt 70.0 kg
[~2017-04-17 13:04] MED LIST changes: +ASPI-1159 PO
[2017-04-17] MEDS ORDERED: LEVETIRACETAM 500MG PREMIX 100 ML IV ONE (13:30)
[2017-04-17 15:03] LABS: EOSINOPHILS % 2.6 % (0.0-5.0); HEMATOCRIT. 47.3 % (42.0-52.0); HEMOGLOBIN. 15.7 g/dL (14.0-18.0); LYMPHOCYTES % 12.8 % (20.0-50.0); MEAN CORPUSCULAR HEMOGLOBIN 28.5 pg (28.0-32.0); MEAN CORPUSCULAR VOLUME 85.9 fL (80.0-94.0); MEAN PLATELET VOLUME 7.3 fl (7.4-10.4); MONOCYTES % 8.2 % (2.0-8.0); NEUTROPHILS % 75.4 % (40.0-76.0); PLATELET 203 x1000/uL (130-400); RED BLOOD CELL COUNT 5.51 mill/uL (4.7-6.1); RED CELL DISTRIBUTION WIDTH 14.1 % (11.6-14.6)
[2017-04-17 15:09] LABS: INR 1.3
[2017-04-17 15:17] LABS: CHLORIDE 101 mEq/L (98-107)
[2017-04-17 16:40] VITALS: BP 135/60
== END 2017-04-17 16:41 ==
LOC: ER 13:32
DX: G40.909 Epilepsy, unspecified, not intractable, without status epilepticus (principal); R90.82 White matter disease, unspecified; I51.9 Heart disease, unspecified; J44.9 Chronic obstructive pulmonary disease, unspecified; F20.9 Schizophrenia, unspecified; K21.9 Gastro-esophageal reflux disease without esophagitis; Z79.899 Other long term (current) drug therapy; Z79.82 Long term (current) use of aspirin
CPT/HCPCS: 36415; 70450; 80053; 85025; 85610; 93005; 96365; 99285; J1953

== ENCOUNTER 2017-04-19 10:43 | Emergency (ER) | payer OTHER, MEDICAID ==
[~2017-04-19] VITALS: Ht 177.8 cm; Wt 78.0 kg
[2017-04-19 12:46] LABS: EOSINOPHILS % 3.8 % (0.0-5.0); HEMATOCRIT. 47.7 % (42.0-52.0); LYMPHOCYTES % 13.9 % (20.0-50.0); MEAN CORPUSCULAR HEMOGLOBIN 28.8 pg (28.0-32.0); MEAN CORPUSCULAR VOLUME 85.8 fL (80.0-94.0); MEAN PLATELET VOLUME 7.3 fl (7.4-10.4); MONOCYTES % 11.8 % (2.0-8.0); NEUTROPHILS % 69.5 % (40.0-76.0); PLATELET 203 x1000/uL (130-400); RED BLOOD CELL COUNT 5.55 mill/uL (4.7-6.1)
[2017-04-19 12:50] LABS: CLARITY URINE CLEAR (CLEAR); COLOR URINE YELLOW (YELLOW); KETONES URINE NEGATIVE (NEGATIVE); LEUKOCYTE ESTERASE URINE NEGATIVE (NEGATIVE); NITRITE URINE NEGATIVE (NEGATIVE); OCCULT BLOOD URINE NEGATIVE (NEGATIVE); PH URINE 5.5 (4.5-8.0); PROTEIN URINE NEGATIVE (NEGATIVE); SPECIFIC GRAVITY URINE 1.017 (1.005-1.030); UROBILINOGEN URINE 0.2 E.U./dL (0.2-1.0)
[2017-04-19 13:00] LABS: CHLORIDE 102 mEq/L (98-107); ETHANOL BLOOD < 10 mg/dL
[2017-04-19 13:12] LABS: *AMPHETAMINES SCREEN URINE NEGATIVE (NEGATIVE); *BARBITURATES SCREEN URINE NEGATIVE (NEGATIVE); *BENZODIAZEPINES SCREEN URINE NEGATIVE (NEGATIVE); *COCAINE SCREEN URINE NEGATIVE (NEGATIVE); CANNABINOID URINE SCREEN NEGATIVE (NEGATIVE); METHADONE URINE SCREEN NEGATIVE (NEGATIVE); OPIATES URINE SCREEN NEGATIVE (NEGATIVE); PHENCYCLIDINE URINE SCREEN NEGATIVE (NEGATIVE)
[2017-04-19] MEDS ORDERED: LEVETIRACETAM 1000MG/100ML 100 ML IV ONE (17:45)
[2017-04-19 20:00] VITALS: BP 135/72
== END 2017-04-19 20:30 | disposition home or self-care (01) ==
LOC: ER 10:54
DX: G40.909 Epilepsy, unspecified, not intractable, without status epilepticus (principal); E87.3 Alkalosis; F20.9 Schizophrenia, unspecified; K21.9 Gastro-esophageal reflux disease without esophagitis; J44.9 Chronic obstructive pulmonary disease, unspecified; Z79.82 Long term (current) use of aspirin; Z93.1 Gastrostomy status
CPT/HCPCS: 36415; 70450; 80053; 80305; 81003; 85025; 93005; 96365; 96366; 99285; G0482; J1953

== ENCOUNTER 2017-11-06 12:54 | Emergency (ER) | payer OTHER, MEDICAID ==
[~2017-11-06] VITALS: Ht 172.7 cm; Wt 65.0 kg
[~2017-11-06 12:54] MED LIST changes: +PANT40TA4 PO
[2017-11-06 14:42] VITALS: BP 112/72
== END 2017-11-06 14:49 | disposition home or self-care (01) ==
LOC: ER 12:54
DX: Z48.02 Encounter for removal of sutures (principal); G40.909 Epilepsy, unspecified, not intractable, without status epilepticus; K21.9 Gastro-esophageal reflux disease without esophagitis; J44.9 Chronic obstructive pulmonary disease, unspecified; F17.200 Nicotine dependence, unspecified, uncomplicated
CPT/HCPCS: 99283

== ENCOUNTER 2018-07-17 03:24 | Inpatient (IN) | payer OTHER, MEDICAID ==
[~2018-07-17] VITALS: Ht 182.9 cm; Wt 60.3 kg
[2018-07-17] MEDS ORDERED: SODIUM CHLORIDE 0.9% 1,000 ML IV ONE (04:09)
[2018-07-17 04:40] LABS: CHLORIDE 104 mEq/L (98-107)
[2018-07-17 04:45] LABS: BASOPHILS % 0.8 % (0.0-2.0); EOSINOPHILS % 4.2 % (0.0-5.0); HEMATOCRIT. 53.8 % (42.0-52.0); HEMOGLOBIN. 17.5 g/dL (14.0-18.0); LYMPHOCYTES % 16.3 % (20.0-50.0); MEAN CORPUSCULAR HEMOGLOBIN 28.4 pg (28.0-32.0); MEAN CORPUSCULAR VOLUME 87.3 fL (80.0-94.0); MEAN PLATELET VOLUME 7.9 fl (7.4-10.4); MONOCYTES % 10.6 % (2.0-8.0); NEUTROPHILS % 68.1 % (40.0-76.0); PLATELET 136 x1000/uL (130-400); RED BLOOD CELL COUNT 6.17 mill/uL (4.7-6.1); RED CELL DISTRIBUTION WIDTH 15.1 % (11.6-14.6)
[2018-07-17 05:01] LABS: BG BASE EXCESS 2.7 mmol/L (-2.0-2.0); BG CARBOXYHEMOGLOBIN 1.6 % (0.5-1.5); BG DEOXYHEMOGLOBIN 8.2 % (0.0-5.0); BG FRACTION INSPIRED OXYGEN 28; BG HCO3 ACT 30.8 mmol/L (22.0-26.0); BG METHEMOGLOBIN 0.5 % (0.0-1.5); BG OXYGEN SATURATION 91.6 % (92.0-98.5); BG OXYHEMOGLOBIN 89.7 % (94.0-97.0); BG PCO2 60.2 mmHg (35.0-45.0); BG PH 7.327 (7.350-7.450); BG PO2 64.6 mmHg (75.0-100.0); BG SAMPLE SITE RIGHT RADIAL; BG TOTAL HEMOGLOBIN 17.8 g/dL (12.0-18.0); BG VENT MODE NASAL CANNULA
[2018-07-17 06:39] LABS: CLARITY URINE CLEAR (CLEAR); COLOR URINE YELLOW (YELLOW); KETONES URINE NEGATIVE (NEGATIVE); LEUKOCYTE ESTERASE URINE NEGATIVE (NEGATIVE); NITRITE URINE NEGATIVE (NEGATIVE); OCCULT BLOOD URINE NEGATIVE (NEGATIVE); PH URINE 5.5 (4.5-8.0); PROTEIN URINE NEGATIVE (NEGATIVE); UROBILINOGEN URINE 0.2 E.U./dL (0.2-1.0)
[2018-07-17] MEDS ORDERED: CLONIDINE 0.1MG TABLET PO PRN (08:30)
[2018-07-17] MEDS ORDERED: LEVETIRACETAM 1000MG/100ML 100 ML IV ONE (08:30)
[2018-07-17] MEDS ORDERED: ONDANSETRON HCL 4MG/2ML INJ IV PRN (08:30)
[2018-07-17] MEDS ORDERED: ACETAMINOPHEN 325MG TABLET PO PRN (08:30)
[2018-07-17 09:45] VITALS: BP 143/87
[2018-07-17 10:00] VITALS: BP 143/87
[2018-07-17] MEDS: DEXT 5%/0.45% NACL 1000ML 1,000 ML IV SCH (11:00)
[2018-07-17] MEDS: THIAMINE HCL 100MG TABLET PO SCH (11:23)
[2018-07-17] MEDS: METHYLPREDNISOLONE SOD SUCC 40 MG/ML VIAL IV SCH ×2 (11:23→20:19)
[2018-07-17] MEDS: FAMOTIDINE 20MG/2ML VIAL IV SCH ×2 (11:23→20:19)
[2018-07-17] MEDS: ENOXAPARIN 40MG/0.4ML SYR SUBCUT SCH (11:24)
[2018-07-17 12:00] VITALS: BP 122/85
[2018-07-17] MEDS: IPRATROPIUM/ALBUTEROL 0.5-3(2.5)MG/3ML NEB INH SCH ×3 (12:13→20:30)
[2018-07-17 14:16] LABS: *BARBITURATES SCREEN URINE NEGATIVE (NEGATIVE)
[2018-07-17 14:17] LABS: *AMPHETAMINES SCREEN URINE NEGATIVE (NEGATIVE); *BENZODIAZEPINES SCREEN URINE NEGATIVE (NEGATIVE); *COCAINE SCREEN URINE NEGATIVE (NEGATIVE); METHADONE URINE SCREEN NEGATIVE (NEGATIVE); OPIATES URINE SCREEN NEGATIVE (NEGATIVE); PHENCYCLIDINE URINE SCREEN NEGATIVE (NEGATIVE)
[2018-07-17 14:18] LABS: CANNABINOID URINE SCREEN NEGATIVE (NEGATIVE)
[2018-07-17 15:21] LABS: INR 1.2; PROTHROMBIN TIME 12.7 sec (9.6-11.0)
[2018-07-17] MEDS ORDERED: LORAZEPAM 2MG/ML CPJ IV PRN (15:45)
[2018-07-17 16:00] VITALS: BP 116/77
[2018-07-17 16:23] LABS: BG BASE EXCESS -1.4 mmol/L (-2.0-2.0); BG CARBOXYHEMOGLOBIN 1.3 % (0.5-1.5); BG HCO3 ACT 23.3 mmol/L (22.0-26.0); BG METHEMOGLOBIN 0.4 % (0.0-1.5); BG OXYGEN SATURATION 93.9 % (92.0-98.5); BG OXYHEMOGLOBIN 92.3 % (94.0-97.0); BG PCO2 39.4 mmHg (35.0-45.0); BG PH 7.389 (7.350-7.450); BG PO2 67.7 mmHg (75.0-100.0); BG SAMPLE SITE RIGHT RADIAL; BG TOTAL HEMOGLOBIN 17.8 g/dL (12.0-18.0); BG VENT MODE NASAL CANNULA
[2018-07-17] MEDS: LAMOTRIGINE 25MG TABLET PO SCH (16:25)
[2018-07-17 20:00] VITALS: BP 94/54
[2018-07-17] MEDS: LEVETIRACETAM 500MG TABLET PO SCH (20:19)
[2018-07-17] MEDS ORDERED: LEVETIRACETAM 500 MG in SODIUM CHLORIDE 0.9% 100 ML IV SCH (21:00)
[2018-07-18] VITALS: BP 105/67
[2018-07-18] MEDS: DEXT 5%/0.45% NACL 1000ML 1,000 ML IV SCH ×2 (01:59→13:12)
[2018-07-18] MEDS: METHYLPREDNISOLONE SOD SUCC 40 MG/ML VIAL IV SCH ×3 (02:01→18:26)
[2018-07-18 04:00] VITALS: BP 108/76
[2018-07-18] MEDS: LAMOTRIGINE 25MG TABLET PO SCH ×2 (05:06→18:26)
[2018-07-18 06:28] LABS: BASOPHILS % 0.5 % (0.0-2.0); HEMATOCRIT. 52.6 % (42.0-52.0); HEMOGLOBIN. 17.5 g/dL (14.0-18.0); LYMPHOCYTES % 9.3 % (20.0-50.0); MEAN CORPUSCULAR HEMOGLOBIN 29.2 pg (28.0-32.0); MEAN CORPUSCULAR VOLUME 87.5 fL (80.0-94.0); MEAN PLATELET VOLUME 7.9 fl (7.4-10.4); MONOCYTES % 2.5 % (2.0-8.0); NEUTROPHILS % 87.7 % (40.0-76.0); PLATELET 155 x1000/uL (130-400); RED BLOOD CELL COUNT 6.01 mill/uL (4.7-6.1); RED CELL DISTRIBUTION WIDTH 15.3 % (11.6-14.6)
[2018-07-18 06:42] LABS: CHLORIDE 103 mEq/L (98-107)
[2018-07-18 06:57] LABS: LDL CHOLESTEROL 79 mg/dL (5-100)
[2018-07-18 06:59] LABS: HDL CHOLESTEROL 66 mg/dL (40-59)
[2018-07-18 08:00] VITALS: BP 101/70
[2018-07-18] MEDS: IPRATROPIUM/ALBUTEROL 0.5-3(2.5)MG/3ML NEB INH SCH ×5 (08:31→19:32)
[2018-07-18] MEDS: ENOXAPARIN 40MG/0.4ML SYR SUBCUT SCH (09:09)
[2018-07-18] MEDS: FAMOTIDINE 20MG/2ML VIAL IV SCH ×2 (09:09→21:37)
[2018-07-18] MEDS: LEVETIRACETAM 500MG TABLET PO SCH ×2 (09:10→21:37)
[2018-07-18] MEDS: THIAMINE HCL 100MG TABLET PO SCH (09:11)
[2018-07-18 12:00] VITALS: BP 104/62
[2018-07-18 16:00] VITALS: BP 112/62
[2018-07-18 20:00] VITALS: BP 105/75
[2018-07-19] VITALS (7 sets, daily range): BP systolic 110–148; BP diastolic 70–89
[2018-07-19] MEDS: METHYLPREDNISOLONE SOD SUCC 40 MG/ML VIAL IV SCH ×2 (01:36→10:02)
[2018-07-19] MEDS: LAMOTRIGINE 25MG TABLET PO SCH (04:00)
[2018-07-19] MEDS: IPRATROPIUM/ALBUTEROL 0.5-3(2.5)MG/3ML NEB INH SCH ×3 (04:00→20:09)
[2018-07-19 06:45] LABS: HEMATOCRIT 54.6 % (42.0-52.0); HEMOGLOBIN 17.5 g/dL (14.0-18.0); MEAN CORPUSCULAR HEMOGLOBIN 28.2 pg (28.0-32.0); MEAN CORPUSCULAR VOLUME 88.1 fL (80.0-94.0); PLATELET 111 x1000/uL (130-400); RED CELL DISTRIBUTION WIDTH 15.1 % (11.6-14.6)
[2018-07-19] MEDS: LEVETIRACETAM 500MG TABLET PO SCH ×2 (10:03→21:50)
[2018-07-19] MEDS: FAMOTIDINE 20MG/2ML VIAL IV SCH ×2 (10:03→21:50)
[2018-07-19] MEDS: THIAMINE HCL 100MG TABLET PO SCH (10:04)
[2018-07-19] MEDS: ENOXAPARIN 40MG/0.4ML SYR SUBCUT SCH (10:04)
[2018-07-19 13:26] LABS: CHLORIDE 102 mEq/L (98-107)
[2018-07-19] MEDS ORDERED: SODIUM POLYSTYRENE SULFONATE 15 G/60 ML BOT PO NR (16:00)
[2018-07-20] MEDS ORDERED: PREDNISONE 20MG TABLET PO SCH (09:00)
[2018-07-24] MEDS ORDERED: PREDNISONE 20MG TABLET PO SCH (09:00)
[2018-07-28] MEDS ORDERED: PREDNISONE 10MG TABLET PO SCH (09:00)
== END 2018-07-19 23:14 | DRG 101 ==
LOC: ER 03:24 → 7WST 05:22 → EDBEDREQTM 05:33 → EDBEDREQ 05:33 → ENRESERV 07:17 → 7WST 09:53
PROVIDERS: ADMIT Internal Medicine; ATTEND Internal Medicine
PROC: 4A10X4Z Monitoring of Central Nervous Electrical Activity, External Approach (ICD-10-PCS; principal; 2018-07-19)
DX: G40.409 Other generalized epilepsy and epileptic syndromes, not intractable, without status epilepticus (principal); J44.1 Chronic obstructive pulmonary disease with (acute) exacerbation; B19.20 Unspecified viral hepatitis C without hepatic coma; R10.11 Right upper quadrant pain; R53.1 Weakness; K21.9 Gastro-esophageal reflux disease without esophagitis; I10 Essential (primary) hypertension; E87.5 Hyperkalemia; Z86.73 Personal history of transient ischemic attack (TIA), and cerebral infarction without residual deficits
CPT/HCPCS: 36415; 36600; 71045; 76700; 78227; 80061; 80076; 80305; 82375; 82805; 82962; 83605; 83880; 84132; 84484; 85027; 93005; 94640; 96374; 96375; 99285; A9537; C1893; J1650; J1953; J2920; J3490; J7030; J7040; J7050; J7620

== ENCOUNTER 2018-08-19 10:36 | Emergency (ER) | payer OTHER, MEDICAID ==
[~2018-08-19] VITALS: Ht 175.3 cm; Wt 78.0 kg
[~2018-08-19 10:36] MED LIST changes: -ASPI-1159 PO; +ASPI-1393 PO; -LAMO25TA4 PO; +LAMO25TA9 PO
[2018-08-19] MEDS ORDERED: SODIUM CHLORIDE 0.9% 1,000 ML IV ONE (11:03)
[2018-08-19] MEDS ORDERED: IPRATROPIUM BROMIDE (0.02%) 0.5MG/2.5ML NEB HHN STA (11:03)
[2018-08-19] MEDS ORDERED: ALBUTEROL (0.083%) 2.5MG/3ML NEB HHN STA (11:03)
[2018-08-19] MEDS ORDERED: LEVETIRACETAM 500MG PREMIX 100 ML IV ONE (11:15)
[2018-08-19 11:39] LABS: BASOPHILS % 1.1 % (0.0-2.0); EOSINOPHILS % 2.9 % (0.0-5.0); HEMATOCRIT. 55.4 % (42.0-52.0); HEMOGLOBIN. 18.1 g/dL (14.0-18.0); LYMPHOCYTES % 12.1 % (20.0-50.0); MEAN CORPUSCULAR VOLUME 88.4 fL (80.0-94.0); MEAN PLATELET VOLUME 7.7 fl (7.4-10.4); MONOCYTES % 10.9 % (2.0-8.0); PLATELET 152 x1000/uL (130-400); RED BLOOD CELL COUNT 6.27 mill/uL (4.7-6.1); RED CELL DISTRIBUTION WIDTH 15.4 % (11.6-14.6)
[2018-08-19 11:42] LABS: CHLORIDE 99 mEq/L (98-107)
[2018-08-19 11:44] LABS: INR 1.4; PROTHROMBIN TIME 14.1 sec (9.6-11.0)
[2018-08-19 13:00] VITALS: BP 114/71
== END 2018-08-19 13:57 ==
LOC: ER 11:12
DX: G40.909 Epilepsy, unspecified, not intractable, without status epilepticus (principal); J44.9 Chronic obstructive pulmonary disease, unspecified; K21.9 Gastro-esophageal reflux disease without esophagitis; Z79.82 Long term (current) use of aspirin; Z79.899 Other long term (current) drug therapy
CPT/HCPCS: 36415; 71045; 80053; 85025; 85610; 93005; 94640; 96374; 99284; J1953; J7030; J7611

== ENCOUNTER 2018-09-12 20:54 | Inpatient (IN) | payer OTHER, MEDICAID ==
[~2018-09-12] VITALS: Ht 185.4 cm; Wt 63.0 kg
[2018-09-12] MEDS ORDERED: METHYLPREDNISOLONE SOD SUCC 125 MG/2 ML VIAL IV STA (22:00)
[2018-09-12] MEDS ORDERED: IPRATROPIUM BROMIDE (0.02%) 0.5MG/2.5ML NEB HHN STA (22:00)
[2018-09-12] MEDS: ALBUTEROL (0.083%) 2.5MG/3ML NEB HHN SCH ×3 (22:10→23:10)
[2018-09-12 23:14] LABS: BASOPHILS % 0.7 % (0.0-2.0); EOSINOPHILS % 2.8 % (0.0-5.0); HEMOGLOBIN. 17.9 g/dL (14.0-18.0); LYMPHOCYTES % 15.1 % (20.0-50.0); MEAN CORPUSCULAR HEMOGLOBIN 29.1 pg (28.0-32.0); MEAN PLATELET VOLUME 7.9 fl (7.4-10.4); MONOCYTES % 11.5 % (2.0-8.0); NEUTROPHILS % 69.9 % (40.0-76.0); PLATELET 150 x1000/uL (130-400); RED BLOOD CELL COUNT 6.14 mill/uL (4.7-6.1); RED CELL DISTRIBUTION WIDTH 15.1 % (11.6-14.6)
[2018-09-12 23:18] LABS: INR 1.3; PROTHROMBIN TIME 13.6 sec (9.6-11.0)
[2018-09-12 23:21] LABS: CHLORIDE 102 mEq/L (98-107)
[2018-09-12 23:39] LABS: CARBAMAZEPINE < 0.5 ug/mL (4-12); VALPROIC ACID < 3.0 ug/mL (50-100)
[2018-09-12 23:40] LABS: PHENOBARBITAL < 2.1 ug/mL (15.0-40.0)
[2018-09-13] VITALS (9 sets, daily range): BP systolic 94–132; BP diastolic 50–70
[2018-09-13] MEDS ORDERED: LEVETIRACETAM 1000MG/100ML 100 ML IV ONE (00:45)
[2018-09-13] MEDS ORDERED: LORAZEPAM 2MG/ML CPJ IV ONE (00:45)
[2018-09-13] MEDS ORDERED: MAGNESIUM 2 G PREMIX 50 ML IV STA (02:20)
[2018-09-13] MEDS ORDERED: ALBUTEROL (0.083%) 2.5MG/3ML NEB HHN STA (02:20)
[2018-09-13] MEDS ORDERED: DEXTROSE 5% WATER 1,000 ML IV SCH (06:00)
[2018-09-13 06:10] LABS: BG BASE EXCESS -1.3 mmol/L (-2.0-2.0); BG BILEVEL POS AIRWAY PRESSURE 15/5; BG CARBOXYHEMOGLOBIN 0.3 % (0.5-1.5); BG DEOXYHEMOGLOBIN 5.7 % (0.0-5.0); BG FRACTION INSPIRED OXYGEN 60; BG METHEMOGLOBIN 0.5 % (0.0-1.5); BG OXYGEN SATURATION 94.3 % (92.0-98.5); BG OXYHEMOGLOBIN 93.5 % (94.0-97.0); BG PCO2 57.8 mmHg (35.0-45.0); BG PH 7.287 (7.350-7.450); BG PO2 76.7 mmHg (75.0-100.0); BG SAMPLE SITE RIGHT RADIAL; BG TOTAL HEMOGLOBIN 19.6 g/dL (12.0-18.0); BG VENT MODE MASK - BIPAP
[2018-09-13] MEDS: METHYLPREDNISOLONE SOD SUCC 40 MG/ML VIAL IV SCH ×3 (06:53→21:53)
[2018-09-13] MEDS ORDERED: PHENYTOIN SODIUM 1,000 MG in SODIUM CHLORIDE 0.9% 100 ML IV NR (08:00)
[2018-09-13] MEDS: ENOXAPARIN 40MG/0.4ML SYR SUBCUT SCH (08:21)
[2018-09-13] MEDS ORDERED: LEVETIRACETAM 750 MG in SODIUM CHLORIDE 0.9% 100 ML IV SCH (09:00)
[2018-09-13] MEDS: IPRATROPIUM/ALBUTEROL 0.5-3(2.5)MG/3ML NEB HHN SCH ×4 (09:14→21:15)
[2018-09-13 14:22] LABS: CLARITY URINE CLEAR (CLEAR); COLOR URINE YELLOW (YELLOW); KETONES URINE NEGATIVE (NEGATIVE); LEUKOCYTE ESTERASE URINE NEGATIVE (NEGATIVE); NITRITE URINE NEGATIVE (NEGATIVE); OCCULT BLOOD URINE NEGATIVE (NEGATIVE); PROTEIN URINE NEGATIVE (NEGATIVE); SPECIFIC GRAVITY URINE 1.014 (1.005-1.030); UROBILINOGEN URINE 0.2 E.U./dL (0.2-1.0)
[2018-09-13 14:43] LABS: *AMPHETAMINES SCREEN URINE NEGATIVE (NEGATIVE)
[2018-09-13 14:44] LABS: *BARBITURATES SCREEN URINE NEGATIVE (NEGATIVE); *BENZODIAZEPINES SCREEN URINE NEGATIVE (NEGATIVE); *COCAINE SCREEN URINE NEGATIVE (NEGATIVE); METHADONE URINE SCREEN NEGATIVE (NEGATIVE); OPIATES URINE SCREEN NEGATIVE (NEGATIVE)
[2018-09-13 14:45] LABS: CANNABINOID URINE SCREEN NEGATIVE (NEGATIVE); PHENCYCLIDINE URINE SCREEN NEGATIVE (NEGATIVE)
[2018-09-13] MEDS: PIPERACILLIN/TAZ 3.375G PREMIX 50 ML IV SCH ×2 (15:01→20:31)
[2018-09-13] MEDS ORDERED: HYDROCODONE/ACETAMINOPHEN 5/325MG TABLET PO PRN (17:00)
[2018-09-13] MEDS ORDERED: HYDRALAZINE 20MG/ML VIAL IV PRN (17:00)
[2018-09-13] MEDS ORDERED: LORAZEPAM 2MG/ML CPJ IV PRN (17:00)
[2018-09-13] MEDS ORDERED: DOCUSATE SODIUM 100MG CAPSULE PO PRN (17:00)
[2018-09-13] MEDS ORDERED: DIPHENHYDRAMINE 50MG/ML VIAL IV PRN (17:00)
[2018-09-13] MEDS: SODIUM CHLORIDE 0.45% 1,000 ML IV SCH (17:12)
[2018-09-13 18:18] LABS: HEMATOCRIT 52.1 % (42.0-52.0); HEMOGLOBIN 16.9 g/dL (14.0-18.0); MEAN CORPUSCULAR HEMOGLOBIN 28.9 pg (28.0-32.0); MEAN CORPUSCULAR VOLUME 88.8 fL (80.0-94.0); PLATELET 142 x1000/uL (130-400); RED BLOOD CELL COUNT 5.86 mill/uL (4.7-6.1); RED CELL DISTRIBUTION WIDTH 15.4 % (11.6-14.6)
[2018-09-13 18:22] LABS: CHLORIDE 100 mEq/L (98-107)
[2018-09-13 18:26] LABS: ETHANOL BLOOD < 10 mg/dL
[2018-09-13 18:31] LABS: CREATINE KINASE 220 IU/L (39-308)
[2018-09-13 18:33] LABS: CREATINE KINASE MB FRACTION 4.1 ng/mL (0.5-3.6)
[2018-09-13] MEDS: LAMOTRIGINE 25MG TABLET PO SCH (21:44)
[2018-09-13] MEDS: LEVETIRACETAM 500MG TABLET PO SCH (21:46)
[2018-09-14] VITALS (12 sets, daily range): BP systolic 92–127; BP diastolic 62–92
[2018-09-14] MEDS: PIPERACILLIN/TAZ 3.375G PREMIX 50 ML IV SCH ×4 (02:17→19:49)
[2018-09-14] MEDS: METHYLPREDNISOLONE SOD SUCC 40 MG/ML VIAL IV SCH ×3 (05:22→18:42)
[2018-09-14 06:59] LABS: HEMATOCRIT 51.9 % (42.0-52.0); HEMOGLOBIN 17.3 g/dL (14.0-18.0); MEAN CORPUSCULAR HEMOGLOBIN 29.2 pg (28.0-32.0); MEAN CORPUSCULAR VOLUME 87.5 fL (80.0-94.0); PLATELET 156 x1000/uL (130-400); RED BLOOD CELL COUNT 5.93 mill/uL (4.7-6.1)
[2018-09-14 07:20] LABS: CHLORIDE 101 mEq/L (98-107)
[2018-09-14] MEDS: LAMOTRIGINE 25MG TABLET PO SCH ×2 (09:33→20:30)
[2018-09-14] MEDS: LEVETIRACETAM 500MG TABLET PO SCH ×2 (09:33→20:31)
[2018-09-14] MEDS: ENOXAPARIN 40MG/0.4ML SYR SUBCUT SCH (09:34)
[2018-09-14] MEDS: SODIUM CHLORIDE 0.45% 1,000 ML IV SCH (09:34)
[2018-09-14 13:55] LABS: BG BASE EXCESS 0.8 mmol/L (-2.0-2.0); BG CARBOXYHEMOGLOBIN 0.3 % (0.5-1.5); BG DEOXYHEMOGLOBIN 11.7 % (0.0-5.0); BG FRACTION INSPIRED OXYGEN 21; BG HCO3 ACT 27.3 mmol/L (22.0-26.0); BG METHEMOGLOBIN 0.4 % (0.0-1.5); BG OXYGEN SATURATION 88.2 % (92.0-98.5); BG OXYHEMOGLOBIN 87.6 % (94.0-97.0); BG PCO2 49.5 mmHg (35.0-45.0); BG PO2 55.8 mmHg (75.0-100.0); BG SAMPLE SITE LEFT RADIAL; BG TOTAL HEMOGLOBIN 19.2 g/dL (12.0-18.0); BG VENT MODE ROOM AIR
[2018-09-14] MEDS: IPRATROPIUM/ALBUTEROL 0.5-3(2.5)MG/3ML NEB HHN SCH ×2 (15:08→20:58)
[2018-09-15] VITALS (10 sets, daily range): BP systolic 97–123; BP diastolic 63–81
[2018-09-15] MEDS: IPRATROPIUM/ALBUTEROL 0.5-3(2.5)MG/3ML NEB HHN SCH ×5 (00:54→17:26)
[2018-09-15] MEDS: PIPERACILLIN/TAZ 3.375G PREMIX 50 ML IV SCH ×3 (02:41→14:37)
[2018-09-15] MEDS: METHYLPREDNISOLONE SOD SUCC 40 MG/ML VIAL IV SCH ×2 (06:41→17:47)
[2018-09-15 06:45] LABS: HEMATOCRIT 55.1 % (42.0-52.0); HEMOGLOBIN 18.4 g/dL (14.0-18.0); MEAN CORPUSCULAR HEMOGLOBIN 29.4 pg (28.0-32.0); MEAN CORPUSCULAR VOLUME 88.3 fL (80.0-94.0); PLATELET 137 x1000/uL (130-400); RED BLOOD CELL COUNT 6.24 mill/uL (4.7-6.1); RED CELL DISTRIBUTION WIDTH 15.3 % (11.6-14.6)
[2018-09-15 06:51] LABS: CHLORIDE 102 mEq/L (98-107)
[2018-09-15] MEDS: LEVETIRACETAM 500MG TABLET PO SCH (08:57)
[2018-09-15] MEDS: ENOXAPARIN 40MG/0.4ML SYR SUBCUT SCH (08:57)
[2018-09-15] MEDS: LAMOTRIGINE 25MG TABLET PO SCH (09:00)
[2018-09-15] MEDS ORDERED: PHENYTOIN SODIUM EXTENDED 100MG CAPSULE PO NR (16:05)
[2018-09-15] MEDS ORDERED: PHENYTOIN SODIUM EXTENDED 100MG CAPSULE PO SCH (16:45)
== END 2018-09-15 18:20 | DRG 100 ==
LOC: ER 20:54 → 3WST 09-13 00:02 → EDBEDREQDT 09-13 00:10 → EDBEDREQ 09-13 00:10 → EDBEDREQTM 09-13 00:10 → CANRESERV 09-13 02:12 → ENRESERV 09-13 02:12 → EDBEDREQTM 09-13 02:35 → EDBEDREQSVC 09-13 02:35 → ENRESERV 09-13 02:42
PROVIDERS: ADMIT Internal Medicine; ATTEND Internal Medicine
PROC: 5A09357 Assistance with Respiratory Ventilation, Less than 24 Consecutive Hours, Continuous Positive Airway Pressure (ICD-10-PCS; principal; 2018-09-13)
DX: G40.909 Epilepsy, unspecified, not intractable, without status epilepticus (principal); J96.01 Acute respiratory failure with hypoxia; E87.2 Acidosis; J44.1 Chronic obstructive pulmonary disease with (acute) exacerbation; J84.9 Interstitial pulmonary disease, unspecified; R73.9 Hyperglycemia, unspecified; J06.9 Acute upper respiratory infection, unspecified; I11.9 Hypertensive heart disease without heart failure; I45.10 Unspecified right bundle-branch block; F20.9 Schizophrenia, unspecified; E86.0 Dehydration; K21.9 Gastro-esophageal reflux disease without esophagitis; R74.0 Nonspecific elevation of levels of transaminase and lactic acid dehydrogenase [LDH]; Z86.73 Personal history of transient ischemic attack (TIA), and cerebral infarction without residual deficits; Z87.891 Personal history of nicotine dependence; Z99.81 Dependence on supplemental oxygen
CPT/HCPCS: 36415; 36600; 71045; 80048; 80156; 80165; 80184; 80185; 80305; 80320; 82375; 82550; 82553; 82805; 82962; 83605; 83880; 84484; 85027; 92610; 93005; 94640; 94644; 94660; 96365; 96367; 96375; 97162; 99291; C1893; J1165; J1650; J1953; J2060; J2543; J2920; J2930; J3475; J7050; J7070; J7611; J7620; G0480

== ENCOUNTER 2018-12-14 21:11 | Inpatient (IN) | payer OTHER, MEDICAID ==
[~2018-12-14] VITALS: Ht 167.6 cm; Wt 52.2 kg
[2018-12-14] MEDS ORDERED: SODIUM CHLORIDE 0.9% 1,000 ML IV ONE (22:08)
[2018-12-14] MEDS ORDERED: ONDANSETRON HCL 4MG/2ML INJ IV STA (22:08)
[2018-12-14] MEDS ORDERED: IPRATROPIUM BROMIDE (0.02%) 0.5MG/2.5ML NEB HHN STA (22:33)
[2018-12-14] MEDS ORDERED: ALBUTEROL (0.083%) 2.5MG/3ML NEB HHN STA (22:33)
[2018-12-14] MEDS ORDERED: HALOPERIDOL LACTATE 5MG/ML VIAL IM ONE (22:45)
[2018-12-14] MEDS ORDERED: LORAZEPAM 2MG/ML CPJ IV ONE (22:45)
[2018-12-14 22:50] LABS: CHLORIDE 98 mEq/L (98-107)
[2018-12-14 22:54] LABS: ETHANOL BLOOD < 10 mg/dL
[2018-12-14 22:55] LABS: BASOPHILS % 0.5 % (0.0-2.0); EOSINOPHILS % 1.6 % (0.0-5.0); HEMATOCRIT. 58.6 % (42.0-52.0); HEMOGLOBIN. 19.2 g/dL (14.0-18.0); LYMPHOCYTES % 15.9 % (20.0-50.0); MEAN CORPUSCULAR HEMOGLOBIN 29.6 pg (28.0-32.0); MEAN CORPUSCULAR VOLUME 90.4 fL (80.0-94.0); MEAN PLATELET VOLUME 8.2 fl (7.4-10.4); MONOCYTES % 10.2 % (2.0-8.0); NEUTROPHILS % 71.8 % (40.0-76.0); PLATELET 144 x1000/uL (130-400); RED BLOOD CELL COUNT 6.49 mill/uL (4.7-6.1); RED CELL DISTRIBUTION WIDTH 17.7 % (11.6-14.6)
[2018-12-15] MEDS ORDERED: METHYLPREDNISOLONE SOD SUCC 125 MG/2 ML VIAL IV ONE (00:30)
[2018-12-15 00:45] LABS: COLOR URINE YELLOW (YELLOW); KETONES URINE NEGATIVE (NEGATIVE); LEUKOCYTE ESTERASE URINE NEGATIVE (NEGATIVE); NITRITE URINE NEGATIVE (NEGATIVE); OCCULT BLOOD URINE NEGATIVE (NEGATIVE); PH URINE 6.5 (4.5-8.0); PROTEIN URINE TRACE (NEGATIVE); UROBILINOGEN URINE 0.2 E.U./dL (0.2-1.0)
[2018-12-15 00:54] LABS: *AMPHETAMINES SCREEN URINE NEGATIVE (NEGATIVE)
[2018-12-15 00:55] LABS: *BARBITURATES SCREEN URINE NEGATIVE (NEGATIVE); *BENZODIAZEPINES SCREEN URINE NEGATIVE (NEGATIVE); *COCAINE SCREEN URINE NEGATIVE (NEGATIVE); METHADONE URINE SCREEN NEGATIVE (NEGATIVE); OPIATES URINE SCREEN NEGATIVE (NEGATIVE)
[2018-12-15 00:56] LABS: CANNABINOID URINE SCREEN NEGATIVE (NEGATIVE); PHENCYCLIDINE URINE SCREEN NEGATIVE (NEGATIVE)
[2018-12-15 01:08] LABS: CLARITY URINE CLEAR (CLEAR)
[2018-12-15 04:00] VITALS: BP 130/84
[2018-12-15] MEDS ORDERED: MORPHINE SULFATE 2 MG/ML CPJ (NOT FOR IM USE) IV PRN (04:30)
[2018-12-15] MEDS ORDERED: IPRATROPIUM/ALBUTEROL 0.5-3(2.5)MG/3ML NEB HHN PRN (04:30)
[2018-12-15] MEDS ORDERED: LORAZEPAM 2MG/ML CPJ IV SCH (06:45)
[2018-12-15 07:11] LABS: BG BASE EXCESS 3.2 mmol/L (-2.0-2.0); BG CARBOXYHEMOGLOBIN 0.8 % (0.5-1.5); BG DEOXYHEMOGLOBIN 1.1 % (0.0-5.0); BG FRACTION INSPIRED OXYGEN 99.8; BG HCO3 ACT 33.5 mmol/L (22.0-26.0); BG METHEMOGLOBIN 0.6 % (0.0-1.5); BG OXYGEN SATURATION 98.9 % (92.0-98.5); BG OXYHEMOGLOBIN 97.5 % (94.0-97.0); BG PCO2 76.1 mmHg (35.0-45.0); BG PH 7.262 (7.350-7.450); BG SAMPLE SITE RIGHT RADIAL; BG TOTAL HEMOGLOBIN 17.4 g/dL (12.0-18.0); BG VENT MODE MASK - NRB
[2018-12-15 08:00] VITALS: BP 117/74
[2018-12-15] MEDS: METHYLPREDNISOLONE SOD SUCC 40 MG/ML VIAL IV SCH ×2 (09:31→21:40)
[2018-12-15] MEDS: DEXT 5%/0.45% NACL 1000ML 1,000 ML IV SCH ×2 (09:31→14:50)
[2018-12-15] MEDS: PANTOPRAZOLE SODIUM 40 MG/VIAL IV SCH (09:31)
[2018-12-15] MEDS: LEVETIRACETAM 750 MG in SODIUM CHLORIDE 0.9% 100 ML IV SCH ×2 (09:31→21:40)
[2018-12-15] MEDS: ENOXAPARIN 40MG/0.4ML SYR SUBCUT SCH (09:32)
[2018-12-15 12:20] VITALS: BP 107/63
[2018-12-15] MEDS: LACTULOSE 20G/30ML UDC PO SCH ×2 (14:42→21:40)
[2018-12-15 16:00] VITALS: BP 102/66
[2018-12-15 20:00] VITALS: BP 111/73
[2018-12-15] MEDS ORDERED: LORAZEPAM 2MG/ML CPJ IV PRN (23:45)
[2018-12-15] MEDS ORDERED: GUAIFENESIN 200MG/10ML SUGAR FREE UDC PO PRN (23:45)
[2018-12-16] VITALS: BP_SYST 101; BP_SYST 113; BP_DIAS 62; BP_DIAS 74
[2018-12-16] MEDS ORDERED: LEVOFLOXACIN 500MG PREMIX 100 ML IV SCH ×2 (00:30→02:00)
[2018-12-16] MEDS: DEXT 5%/0.45% NACL 1000ML 1,000 ML IV SCH ×2 (01:45→12:02)
[2018-12-16] MEDS: IPRATROPIUM/ALBUTEROL 0.5-3(2.5)MG/3ML NEB HHN SCH ×3 (02:20→13:39)
[2018-12-16 04:00] VITALS: BP 113/62
[2018-12-16] MEDS: LACTULOSE 20G/30ML UDC PO SCH ×2 (06:00→14:01)
[2018-12-16 08:00] VITALS: BP_SYST 110; BP_SYST 173; BP_DIAS 118; BP_DIAS 84
[2018-12-16] MEDS ORDERED: LAMOTRIGINE 100MG TABLET PO SCH (09:00)
[2018-12-16] MEDS: LEVETIRACETAM 750 MG in SODIUM CHLORIDE 0.9% 100 ML IV SCH (09:20)
[2018-12-16] MEDS: PANTOPRAZOLE SODIUM 40 MG/VIAL IV SCH (09:20)
[2018-12-16] MEDS: METHYLPREDNISOLONE SOD SUCC 40 MG/ML VIAL IV SCH (09:20)
[2018-12-16] MEDS: ENOXAPARIN 40MG/0.4ML SYR SUBCUT SCH (09:21)
[2018-12-16 12:00] VITALS: BP 106/59
[2018-12-16 16:00] VITALS: BP 104/65
[2018-12-16 16:47] VITALS: BP 104/65
[2018-12-16] MEDS ORDERED: FAMOTIDINE 20MG/2ML VIAL IV SCH (21:00)
== END 2018-12-16 18:30 | DRG 189 ==
LOC: ER 21:11 → 5WST 12-15 00:28 → EDBEDREQTM 12-15 00:43 → EDBEDREQDT 12-15 00:43 → EDBEDREQ 12-15 00:43 → ENRESERV 12-15 01:55
PROVIDERS: ADMIT Internal Medicine; ATTEND Internal Medicine
PROC: 5A09357 Assistance with Respiratory Ventilation, Less than 24 Consecutive Hours, Continuous Positive Airway Pressure (ICD-10-PCS; principal; 2018-12-15)
DX: J96.91 Respiratory failure, unspecified with hypoxia (principal); J44.0 Chronic obstructive pulmonary disease with (acute) lower respiratory infection; J44.1 Chronic obstructive pulmonary disease with (acute) exacerbation; E72.20 Disorder of urea cycle metabolism, unspecified; J20.9 Acute bronchitis, unspecified; F20.9 Schizophrenia, unspecified; G40.909 Epilepsy, unspecified, not intractable, without status epilepticus; K21.9 Gastro-esophageal reflux disease without esophagitis; Z87.891 Personal history of nicotine dependence; D75.1 Secondary polycythemia; Z79.899 Other long term (current) drug therapy
CPT/HCPCS: 36415; 36600; 71045; 80305; 80320; 81003; 82140; 82375; 82805; 82962; 83880; 84443; 84484; 87070; 94640; 94660; 96374; 99285; C9113; J1630; J1650; J1953; J1956; J2060; J2405; J2920; J2930; J7030; J7050; J7611; J7620; G0480

== ENCOUNTER 2019-03-29 13:39 | Emergency (ER) | payer OTHER, MEDICAID ==
[~2019-03-29] VITALS: Ht 170.2 cm; Wt 80.0 kg
[~2019-03-29 13:39] MED LIST changes: -ASPI-1393 PO; +ASPI-1497 PO; +AZIT250T12 PO; +P20 PO
[2019-03-29 21:27] VITALS: BP 123/79
== END 2019-03-29 21:28 | disposition home or self-care (01) ==
LOC: ER 13:39
DX: T17.908A Unspecified foreign body in respiratory tract, part unspecified causing other injury, initial encounter (principal); R06.00 Dyspnea, unspecified; J44.9 Chronic obstructive pulmonary disease, unspecified; I10 Essential (primary) hypertension; Z79.899 Other long term (current) drug therapy; Z79.82 Long term (current) use of aspirin; X58.XXXA Exposure to other specified factors, initial encounter; Y93.89 Activity, other specified; Y92.89 Other specified places as the place of occurrence of the external cause; Y99.8 Other external cause status
CPT/HCPCS: 99283